=== PATIENT | female | born 1960 | race Caucasian/White ===

== ENCOUNTER 2020-09-28 13:06 | Inpatient (IN) | payer MEDICARE, OTHER ==
[~2020-09-28] VITALS: Ht 165.1 cm; Wt 61.2 kg
[2020-09-28] MEDS ORDERED: CLON1TAB PO (13:20)
[2020-09-28] MEDS ORDERED: OXYC10TA49 PO (13:20)
[2020-09-28] MEDS ORDERED: TRAZ-257 PO (13:20)
[2020-09-28] MEDS ORDERED: DULO60CA45 PO (13:20)
[2020-09-28 13:31] LABS: HEMATOCRIT 36.2 % (31.2-41.9); MEAN CORPUSCULAR HEMOGLOBIN 23.6 uug (24.7-32.8); MEAN CORPUSCULAR VOLUME 74.8 fL (75.5-95.3); PLATELET COUNT (AUTO) 305 K/uL (179-408)
[2020-09-28 13:36] LABS: CARBON DIOXIDE 34 mmol/L (21-32); CHLORIDE 100 mmol/L (98-107); CREATININE 0.7 mg/dL (0.6-1.3); GLUCOSE 115 mg/dL (74-106); POTASSIUM 4.1 mmol/L (3.5-5.1); UREA NITROGEN, BLOOD 6 mg/dL (7-18)
[2020-09-28 13:41] LABS: ETHANOL < 3 MG/DL (0-0)
[2020-09-28 13:48] LABS: *BILIRUBIN,URIN NEGATIVE (NEGATIVE); *BLOOD, URINE NEGATIVE (NEGATIVE); *CLARITY,URINE CLEAR (CLEAR); *COLOR,URINE YELLOW (YELLOW); *KETONES,URINE NEGATIVE (NEGATIVE); *UROBILINOGEN,URINE 0.2 E.U./dl (NORMAL); LEUKOCYTE ESTERASE ,URINE NEGATIVE (NEGATIVE); NITRITE, URINE NEGATIVE (NEGATIVE); PH,URINE 6.5 (5.0-8.0); UGLUCOSE NEGATIVE (NEGATIVE)
[2020-09-28 13:50] LABS: ALANINE AMINOTRANSFERASE 17 U/L (14-59); ALKALINE PHOSPHATASE 70 U/L (50-136); ASPARTATE AMINOTRANSFERASE 18 U/L (15-37); BILIRUBIN,DIRECT 0.1 mg/dL (0.0-0.2); BILIRUBIN,TOTAL 0.4 mg/dL (0.2-1.0)
[2020-09-28 13:51] LABS: ACETAMINOPHEN < 2.0 ug/mL (10-30)
--- NOTE | 2020-09-28 13:51 | NUR ---
"No available bed & nurse@[facility] at this time." per hot car charger Sepi. 1:1 sitter observation maintained with KAMRAN Quiroz. Lunch tray@bedside. Iced water & a cup of ice for her juice were also provided per patient's request.
[2020-09-28 13:58] LABS: *AMPHETAMINE, URINE NEGATIVE (NEGATIVE); *CANNABINOID, URINE POSITIVE (NEGATIVE); *COCCAINE, URINE NEGATIVE (NEGATIVE); *OPIATE, URINE POSITIVE (NEGATIVE); *PHENCYCLIDINE SCREEN,URINE NEGATIVE (NEGATIVE)
--- NOTE | 2020-09-28 14:14 | NUR ---
Patient ate lunch with good appetite. She is calm & cooperative@this time. KAMRAN Quiroz at bedside as 1:1 sitter.
--- NOTE | 2020-09-28 15:11 | NUR ---
Medically cleared by Dr Terry for admission to psych unit but there are no available bed or nurse@this time. 1:1 sitter observation maintained.
[2020-09-28 16:15] VITALS: BP 126/75
--- NOTE | 2020-09-28 16:25 | NUR ---
Admitted patient from ED. Patient arrived via gurney. AOx3-4. On room air. No signs of acute distress. Vital signs WNL. Patient able to ambulate with walker. Bed locked and in low position. Oriented patient to unit and room. Will continue to monitor.
[2020-09-28 20:00] VITALS: BP 122/75
[2020-09-28] MEDS ORDERED: ACETAMINOPHEN 325 MG TABLET PO PRN (20:15)
[2020-09-28] MEDS ORDERED: MAG HYDROX/AL HYDROX/SIMETH 30 ML LIQUID UDC PO PRN (20:15)
[2020-09-28] MEDS ORDERED: MAGNESIUM HYDROXIDE 30 ML LIQUID UDC PO PRN (20:15)
[2020-09-28] MEDS ORDERED: BLOOD SUGAR DIAGNOSTIC 1 EACH STRIP VI ONE (20:45)
--- NOTE | 2020-09-28 21:00 | NUR ---
RECEIVED PATIENT IN THE DAY ROOM, SHE IS NOTED A/O X 3 ABLE TO AMBULATE WITH THE AID OF A FWW. SHE IS NOTED CALM AND PLEASANT UPON APPROACHED. HER ADVISEMENT WAS GIVEN WELL HER BOOKLET FOR PATIENT RIGHTS ON A MENTAL HEALTH FACILITIES. SHE DENIED SI AT THIS TIME, SHE DENIED HI/VA/AH. SHE IS ABLE TO VERBALLY CFS. V/S STABLE, PATIENT WAS GIVEN PO FLUIDS AND SNACKS. SHE IS REASSURED FOR HER SAFETY. SAFETY AND FALL PRECAUTIONS IN PLACE. WILL CONTINUE WITH Q15 MIN CHECKS.
[2020-09-29] MEDS: TEMAZEPAM 7.5 MG CAPSULE PO PRN (01:13)
--- NOTE | 2020-09-29 01:14 | NUR ---
PATIENT APPROACHED THE NURSING STATION REQUESTING A "SLEEPING PILL". SHE ALSO STATED THAT SHE IS FEELING DEPRESSED AND SAD BUT NO ACTIVE SUICIDAL THOUGHT AT THIS TIME. SHE IS REASSURED FOR HER SAFETY. SAFETY AND FALL PRECAUTION IN PLACE. Q15 MIN CHECKS. TEMAZEPAM 7.5 MG PO PRN WAS GIVEN. WILL CONTINUE TO MONITOR CLOSELY.
[2020-09-29 07:07] LABS: THYROID STIMULATING HORMONE 1.126 mIU/mL (0.358-3.740)
[2020-09-29 07:30] VITALS: BP 100/59
--- NOTE | 2020-09-29 08:29 | NUR ---
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 A copy of report has been placed in patient chart.
[2020-09-29] MEDS ORDERED: DULOXETINE 60 MG CAPSULE.DR PO SCH (09:00)
--- NOTE | 2020-09-29 09:37 | NUR ---
MARNIE Initial Discharge Plan: Patient resides at home [address] [place] [address] alone. Patient would like to return home upon discharge. Patient's son Jefferson ([phone]) is a primary contact. MARNIE will continue to work with patient, family, and MD to ensure a safe and proper discharge plan.
--- NOTE | 2020-09-29 09:50 | NUR ---
Brief Substance Abuse Intervention: Patient was provided with a brief substance abuse intervention for plan to overdose due to suicidal ideation and referred to the following substance abuse programs: [facility] ([phone]); [facility] [address] [place] [address] ([phone]); [facility] [address] [facility] [address] [phone]); [facility] ([phone]); [facility] ([phone]); [facility] ([phone]); [facility] ([phone]).
--- NOTE | 2020-09-29 10:16 | NUR ---
MARNIE Family Contact: SW spoke with patient's son Jefferson ([phone]) who is involved in the patient's care, discussed treatment and discharge plan.
[2020-09-29] MEDS ORDERED: DULOXETINE 30 MG CAPSULE.DR PO SCH (13:00)
[2020-09-29] MEDS: DULOXETINE 60 MG CAPSULE.DR PO SCH (14:06)
[2020-09-29] MEDS: CLONAZEPAM 1 MG TABLET PO SCH ×2 (14:06→21:11)
[2020-09-29 16:11] VITALS: BP 113/74
[2020-09-29] MEDS: OXYCODONE HCL 5 MG TABLET PO PRN (19:45)
[2020-09-29 20:18] VITALS: BP 123/84
[2020-09-29] MEDS: TRAZODONE 50 MG TABLET PO SCH (21:11)
[2020-09-29] MEDS: SIMVASTATIN 20 MG TABLET PO SCH (21:11)
--- NOTE | 2020-09-30 05:39 | NUR ---
Received this patient in the torres asking this mortgage underwriter for "pain medication".The patients affect was flat and the patient appeared depressed. This mortgage underwriter attempted to engage the patient in conversation but the patient was shut down at that time and did not feel like talking. However,the patient did make a verbal contract for safety with this mortgage underwriter and denied SI when asked. Other request were made from patient for Sleeping medication as well as medication for anxiety. Safety stratiges are in place and frequent rounding done. Patient slept 7.45 hours last night. Monitoring patient for any needs that may arise.
[2020-09-30] MEDS: CLONAZEPAM 1 MG TABLET PO SCH ×2 (08:01→21:08)
[2020-09-30 08:06] VITALS: BP 103/64
[2020-09-30] MEDS: DULOXETINE 60 MG CAPSULE.DR PO SCH (12:46)
[2020-09-30] MEDS: OXYCODONE HCL 5 MG TABLET PO PRN ×2 (12:46→20:11)
[2020-09-30 16:46] VITALS: BP 110/71
[2020-09-30 20:06] VITALS: BP 126/69
[2020-09-30] MEDS: SIMVASTATIN 20 MG TABLET PO SCH (21:00)
[2020-09-30] MEDS: TRAZODONE 50 MG TABLET PO SCH (21:08)
--- NOTE | 2020-10-01 05:56 | NUR ---
GPS note: Patient and this typewriter tester had a long conversation last night and the patient was able and willing to express some of the things that depress her. At times the patient would cry, but the typewriter tester noticed the patient had insight and was able to verbalize things and thoughts that trigger her feeling of SI. A verbal contract was made with the patient based on safety. This patient agreed to take a shower and carry on with the ADLs she has been neglecting. Much reassurance and comfort was provided to the patient. Sleep hours were 6.30 last night. Continuing to monitor and asses patients needs.
[2020-10-01] MEDS: CLONAZEPAM 1 MG TABLET PO SCH ×2 (08:00→20:00)
[2020-10-01 08:13] VITALS: BP 107/54
[2020-10-01] MEDS: DULOXETINE 60 MG CAPSULE.DR PO SCH (12:04)
[2020-10-01] MEDS: OXYCODONE HCL 5 MG TABLET PO PRN (13:44)
[2020-10-01 16:19] VITALS: BP 109/66
[2020-10-01] MEDS: TRAZODONE 50 MG TABLET PO SCH (20:00)
[2020-10-01] MEDS: SIMVASTATIN 20 MG TABLET PO SCH (20:00)
[2020-10-02 08:12] VITALS: BP 115/55
[2020-10-02] MEDS: CLONAZEPAM 1 MG TABLET PO SCH ×2 (08:24→21:20)
[2020-10-02] MEDS: DULOXETINE 60 MG CAPSULE.DR PO SCH (12:01)
[2020-10-02] MEDS: OXYCODONE HCL 5 MG TABLET PO PRN ×2 (14:17→20:38)
[2020-10-02 15:27] VITALS: BP 120/76
[2020-10-02] MEDS: BENZTROPINE MESYLATE 1 MG TABLET PO SCH (16:15)
[2020-10-02] MEDS ORDERED: ARIPIPRAZOLE 2 MG TABLET PO SCH (17:00)
[2020-10-02] MEDS: SIMVASTATIN 20 MG TABLET PO SCH (21:00)
[2020-10-02 21:17] VITALS: BP 139/69
[2020-10-02] MEDS: TRAZODONE 50 MG TABLET PO SCH (21:20)
[2020-10-03] MEDS: TEMAZEPAM 7.5 MG CAPSULE PO PRN ×2 (00:36→23:25)
[2020-10-03 07:30] VITALS: BP 105/61
[2020-10-03] MEDS: CLONAZEPAM 1 MG TABLET PO SCH ×2 (08:27→20:58)
[2020-10-03] MEDS: DULOXETINE 60 MG CAPSULE.DR PO SCH (12:19)
[2020-10-03] MEDS: OXYCODONE HCL 5 MG TABLET PO PRN ×2 (13:12→22:18)
[2020-10-03 15:15] VITALS: BP 112/60
[2020-10-03] MEDS: ARIPIPRAZOLE 2 MG TABLET PO SCH (16:35)
[2020-10-03] MEDS: BENZTROPINE MESYLATE 1 MG TABLET PO SCH (16:36)
--- NOTE | 2020-10-03 20:00 | NUR ---
RECEIVED PATIENT IN HER ROOM IN BED. SHE IS NOTED AWAKE A/O X 4 ABLE TO VERBALIZED FEELINGS. CONTINUE WITHDRAWN, SHE APPEARS TO BE DEPRESSED. HER MOOD IS LOW, AFFECT IS BLUNTED. PATIENT STATED, I AM SAD ABOUT EVERYTHING THAT HAS HAPPENED TO ME BUT I DON'T WANT TO , I DON'T WANT TO HARM MYSELF. THAT HAS PASSED. THIS SECURITY DELIVERY SPECIALIST HAD A LONG CONVERSATION WITH PATIENT, SHE WAS REASSURED AND REDIRECTED, SHE DENIED SI, SHE IS ABLE TO VERBALLY CFS, DENIAL IS CONVINCING. SHE IS ENCOURAGES TO CONTINUE VERBALIZING FEELINGS. SHE WAS OFFERED PO FLUIDS AND SNACKS. V/S STABLE. SHE IS REASSURED FOR HER SAFETY. SAFETY AND FALL PRECAUTION IN PLACE. WILL CONTINUE TO MONITOR.
[2020-10-03 20:32] VITALS: BP 121/68
[2020-10-03] MEDS: TRAZODONE 50 MG TABLET PO SCH (20:58)
[2020-10-03] MEDS: SIMVASTATIN 20 MG TABLET PO SCH (20:58)
--- NOTE | 2020-10-04 07:30 | NUR ---
Received report from JOHNSON Christina. All questions, comments, and concerns were addressed. Received patient asleep in her assigned bed. bed is in low and locked position with bed alarm on.
[2020-10-04 07:51] VITALS: BP 95/48
[2020-10-04] MEDS: CLONAZEPAM 1 MG TABLET PO SCH ×2 (09:48→20:54)
--- NOTE | 2020-10-04 11:41 | NUR ---
MARNIE PC Hearing: Patient had 5250 probable cause hearing today and it released from her psychiatric hold. Patient is choosing to sign voluntary in order to arrange transportation back home and wants to leave Friday.
[2020-10-04] MEDS: DULOXETINE 60 MG CAPSULE.DR PO SCH (12:45)
[2020-10-04] MEDS: OXYCODONE HCL 5 MG TABLET PO PRN ×2 (12:51→21:44)
[2020-10-04] MEDS: BENZTROPINE MESYLATE 1 MG TABLET PO SCH (16:21)
[2020-10-04] MEDS: ARIPIPRAZOLE 2 MG TABLET PO SCH (16:21)
[2020-10-04 16:26] VITALS: BP 129/68
--- NOTE | 2020-10-04 20:00 | NUR ---
RECEIVED PATIENT HER ROOM IN BED. SHE IS NOTED AWAKE A/O X 4 ABLE TO VERBALIZED FEELINGS. PATIENT CONTINUE WITH LOW MOOD, WITHDRAWN AND ISOLATIVE. HOWEVER, SHE DENIED SI SHE IS ABLE TO VERBALLY CFS. DENIAL IS CONVINCING. SHE WAS GIVEN PO FLUIDS AND SNACKS. SAFETY AND FALL PRECAUTION IN PLACE. SHE IS REASSURED FOR HER SAFETY. V/S STABLE. WILL CONTINUE TO MONITOR.
[2020-10-04] MEDS: SIMVASTATIN 20 MG TABLET PO SCH (20:54)
[2020-10-04] MEDS: TRAZODONE 50 MG TABLET PO SCH (20:54)
[2020-10-04 21:18] VITALS: BP 139/83
[2020-10-04] MEDS: TEMAZEPAM 7.5 MG CAPSULE PO PRN (23:12)
[2020-10-05 07:30] VITALS: BP 103/53
[2020-10-05] MEDS: CLONAZEPAM 1 MG TABLET PO SCH ×2 (08:11→20:08)
[2020-10-05] MEDS: OXYCODONE HCL 5 MG TABLET PO PRN ×3 (08:11→17:07)
[2020-10-05] MEDS: DULOXETINE 60 MG CAPSULE.DR PO SCH (12:05)
[2020-10-05 16:00] VITALS: BP 117/70
[2020-10-05] MEDS: BENZTROPINE MESYLATE 1 MG TABLET PO SCH (17:14)
[2020-10-05] MEDS: ARIPIPRAZOLE 2 MG TABLET PO SCH (17:14)
[2020-10-05 20:00] VITALS: BP 133/89
[2020-10-05] MEDS: TRAZODONE 50 MG TABLET PO SCH (20:07)
[2020-10-05] MEDS: SIMVASTATIN 20 MG TABLET PO SCH (20:09)
[2020-10-05] MEDS ORDERED: TRAZODONE 50 MG TABLET PO SCH (21:00)
[2020-10-05] MEDS: TEMAZEPAM 7.5 MG CAPSULE PO PRN (21:12)
[2020-10-06] MEDS: LORAZEPAM 0.5 MG TABLET PO PRN ×2 (01:31→12:29)
[2020-10-06 07:30] VITALS: BP 121/74
--- NOTE | 2020-10-06 08:23 | NUR ---
SW Discharge Note: Patient will be discharged back home [address] [place] [address]. Patients sonJefferson ([phone]) is aware and agreeable with discharge plan and will be picking up the patient at 4-5PM. Patient is alert and oriented x4 and is able to independently take care of herself. Patient denies suicidal or homicidal ideation. Patient is aware and agreeable with discharge plan. Patient presents with euthymic mood and congruent affect. Patient will be following up with her primary care physician Dr. Karen Pantoja [address], [place] [address] ([phone]) and has an appointment scheduled on October 09, 2020 at 8:30AM, spoke with Nikolas who confirmed that doctor will monitor patients psychotropic medications and refer patient for outpatient psychiatrist. Patient will be following up with her therapist Dr. Tomlinson ([phone]).
[2020-10-06] MEDS: CLONAZEPAM 1 MG TABLET PO SCH (10:24)
[2020-10-06] MEDS: DULOXETINE 60 MG CAPSULE.DR PO SCH (12:29)
[2020-10-06] MEDS: OXYCODONE HCL 5 MG TABLET PO PRN (13:18)
[2020-10-06 16:00] VITALS: BP 119/75
[2020-10-06] MEDS: BENZTROPINE MESYLATE 1 MG TABLET PO SCH (16:09)
[2020-10-06] MEDS: ARIPIPRAZOLE 2 MG TABLET PO SCH (16:09)
--- NOTE | 2020-10-06 16:45 | NUR ---
Pt is being discharged home with her son. Discharge instructions given including follow up appointment and medications prescription. Prescription were called in to patient's pharmacy, [facility] in [facility]. Pt verbalizes understanding.
== END 2020-10-06 18:03 | disposition home or self-care (01) | DRG 885 ==
LOC: ER 13:06 → EDSEX 13:06 → GPS 15:25
PROVIDERS: ADMIT Psychiatry & Neurology Psychosomatic Medicine; ATTEND Student in an Organized Health Care Education/Training Program
DX: F33.3 Major depressive disorder, recurrent, severe with psychotic symptoms (principal); G61.0 Guillain-Barre syndrome; F23 Brief psychotic disorder; R73.03 Prediabetes; E78.5 Hyperlipidemia, unspecified; Z85.038 Personal history of other malignant neoplasm of large intestine; Z20.822 Contact with and (suspected) exposure to COVID-19; M81.0 Age-related osteoporosis without current pathological fracture; F41.9 Anxiety disorder, unspecified; F19.90 Other psychoactive substance use, unspecified, uncomplicated
CPT/HCPCS: 36415; 71045; 84443; 85025; 93005; 97161; A4663; G0480